=== PATIENT | female | born 2000 | race Caucasian/White ===

== ENCOUNTER 2019-05-09 10:49 | Inpatient (IN) ==
[~2019-05-09 10:49] MED LIST: Famotidine 20 MG/2 ML VIAL IVP PRN; Methylergonovine 0.2 MG/ML AMPUL IM ONE; Metoclopramide 10 MG/2 ML VIAL IVP PRN; Naloxone 0.4 MG/ML INJ IVP PRN; miSOPROStol 100 MCG TABLET PO ONE
[2019-05-09 10:52] LABS: Amphetamine Screen,Urine Negative ng/mL (Cutoff=1000); Barbiturate Screen,Urine Negative ng/mL (Cutoff=200); Benzodiazepines Screen,Urine Negative ng/mL (Cutoff=200); Cannabinoid Screen,Urine Negative ng/mL (Cutoff = 50); Cocaine Screen,Urine Negative ng/mL (Cutoff= 300); Opiate Screen,Urine Negative ng/mL (Cutoff=300); Phencyclidine Screen,Urine Negative ng/mL (Cutoff=25)
[2019-05-09] MEDS ORDERED: Ondansetron 4 MG/2 ML VIAL IVP PRN (10:54)
--- NOTE | 2019-05-09 11:02 | OB/GYN History & Physical ---
Date of Encounter: 05/09/19 Time of Encounter: 11:00 Assessment and Plan (1) 37 weeks gestation of Current visit: Yes Status: Acute 18 yo female presents at 37w1d gestation in labor. Will admit to labor and delivery and expect . History of Present Illness Chief complaint: contractions HPI: Ms. Clayton is a 18 year old female 18yo female presents at 37w1d presents with c/o contractions since 4:30 this am Denies LOF, she is having some spotting. Past Med Surg Social Fam HX - Past Medical History Source: patient, old records reviewed Medical history: no medical history Psychiatric history: no psych history - Past Surgical History Surgical History: no surgical history Additional surgical history: T and A at 16 years old - Social History Smoking Status: Never smoker Smokeless Tobacco Status: No Alcohol use: none Drug use: none - Family History Mother Name: Denies any family history Obstetrical History - Pregnancies : 2 Para: 1 (36 weeks ) Medications and Allergies Vit #108/Iron/FA [ One Tablet] 1 each PO DAILY #30 tablet 07/17/17 [Rx] Allergy/AdvReac Type Severity Reaction Status Date / Time No Known Allergies Allergy Verified 01/23/19 11:25 Exam - Constitutional Constitutional: well developed - HEENT HEENT: EOMI, PERRL - Neck Neck exam: full ROM - Lungs Respiratory exam: CTAB - Cardiovascular Cardiovascular exam: RRR - Abdomen Abdomen: Present: gravid - Extremities Extremities exam: full ROM Deep Tendon Reflex Grade: 2+ Normal - Cervix Dilation: 5 Effacement: 80 Station: -1 Results All other labs normal. - VTE Reasons for not Prescribing Prophylaxis: Treatment not Indicated - Low risk for VTE
[2019-05-09] MEDS ORDERED: *HR* Nalbuphine 10 MG/ML AMPUL IV PRN (11:05)
[2019-05-09] MEDS: Ringers Solution, Lactated 1,000 ML IVC SCH ×2 (11:10→12:01)
[2019-05-09] MEDS ORDERED: *HR* FentaNYL (PF) 100 MCG/2 ML VIAL EP ONE (11:28)
[2019-05-09] MEDS ORDERED: Bupivacaine-MPF 0.25% 10 ML VIAL EP ONE (11:28)
[2019-05-09] MEDS ORDERED: Epidural Premix (fent/bupiv) 110 ML EP SCH (11:30)
[2019-05-09] MEDS ORDERED: Epidural Premix (fent/bupiv) 110 ML EP ONE (11:33)
[2019-05-09 11:44] LABS: Basophils % 0.3 %; Eosinophils # 0.2 K/mcL (0.0-0.6); Eosinophils % 1.3 %; Hematocrit 34.2 % (35.3-44.9); Immature Granulocytes % 0.6 % (0-4); Lymphocytes # 2.6 K/mcL (0.6-4.6); Lymphocytes % 20.4 %; Mean Corpuscular HGB Conc 32.2 g/dL (31.6-35.5); Mean Corpuscular Hemoglobin 25.9 pg (28.0-33.3); Mean Corpuscular Volume 80.7 fL (83.0-100.0); Mean Platelet Volume 9.5 fL (9.4-12.4); Monocytes # 0.9 K/mcL (0.0-1.3); Monocytes % 6.9 %; Neutrophils # 8.9 K/mcL (1.6-8.9); Platelet Count 161 K/mcL (140-400); Red Blood Count 4.24 M/mcL (3.82-4.97); Red Cell Distribution Width 12.6 % (11.5-14.5); Segmented Neutrophils % 70.5 %; White Blood Count 12.6 K/mcL (4.3-11.1)
--- NOTE | 2019-05-09 12:12 | Anesthesia Evaluation PreOp ---
Date of Encounter: 05/09/19 Time of Encounter: 11:39 - Past History Planned Operation: DEMETRIO Cardiac History: Denies any Significant Hx Pulmonary History: Asthma (well-controlled) [employer]ANDWICH WRAPPER History: Denies Any Significant HX Other Medical History: Denies Any Significant HX Anesthesia History: No Prior Anesthetic Complications (no issues w/ NA; denies personal and family h/o GA complications), Past Anesthesia (DEMETRIO x 1; T&A) : Yes Alcohol Use: none Drug use: none Medications and Allergies Vit #108/Iron/FA [ One Tablet] 1 each PO DAILY #30 tablet 07/17/17 [Rx] Allergy/AdvReac Type Severity Reaction Status Date / Time No Known Allergies Allergy Verified 01/23/19 11:25 - Meds/Allergy Pre-op Review Medications Reviewed: Yes Allergies Reviewed: Yes Beta Blockers on Current Med List: No Anesthesia Results - Labs 05/09/19 11:00 Anesthesia Exam O2 Sat Height 1.57 m Weight 66.5 kg NPO (# of Hours): >8hrs Pain Scale: 10 Pain Scale Used: Numeric (1 - 10) - HEENT Pupil (Motor): Pupils equal Mallampati: II Teeth: Normal Oral Opening: Greater than 3 - SANDWICH WRAPPER LOC: Oriented [employer]AND[employer]ICH WRAPPER Motor: Normal RUE, Normal LUE, Normal RLE, Normal LLE, Normal Face [employer]AND[employer]ICH WRAPPER Sensory: Normal: RUE, LUE, RLE, LLE, Face - Cardiac Rhythm: Regular Murmur: None - Pulmonary Breath Sounds: bilateral Clear Respiratory Effort: Symmetrical Anesthesia Assess/Plan ASA Score: 2 Level of consciousness: Cooperative, Oriented, Restless Anesthetic Plan: Epidural Autologous Blood: No Monitoring Plan: Standard Monitors Recovery Plan: Other
--- NOTE | 2019-05-09 12:15 | Anesthesia Procedures ---
Date of Encounter: 05/09/19 Time of Encounter: 11:54 Procedures: Anesthesia - Epidural/Spinal Patient ID/Chart reviewed: Yes Patient examined: Yes OB Eval: Gestational age: 37 weeks 1 day OB Eval: : 2 OB Eval: Hx Para: 1 OB Eval: Dilated at (cm): 7 OB Eval: Contractions: Non-stressed pattern Consent Obtained: Yes Supplemental Oxygen: None/Room Air Site Prep: Aseptic Technique, Sterile prep and drape, Povidone-Iodine 1% Patient position: upright Local Anesthetic: Lidocaine 1% Amount of Local Anesthetic used: 3 Touhy Needle Gauge: 18 Touhy Needle Depth (cm): 4 Catheter Depth at Skin (cm): 9 Test Dose (1.5% Lido + Epi): Volume given (mls): 5 Test Dose Result: Negative Loading Dose: 0.25% Marcaine (mls): 5 Loading Dose: Fentanyl (mcg): 100 Loading Dose Administered: Thru Catheter Infusion Med: 0.125% Bupivacaine w/ 2 mcg/ml Fentanyl Infusion Rate (mls/hr): [address]: Tegaderm, Tape Interspace Used: L4-L5 Loss of Resistance (BEBO): Yes Blood: No CSF: No Paresthesia: No Procedure: successful on 1st attempt; patient tolerated procedure well; VSS Vitals + FHT's: see Katelyn ROCA's electronic records for VS entry
[2019-05-09] MEDS ORDERED: Oxytocin 20 units/ LR 1000 mL 20 UNIT/1,000 ML BAG IVC ONE ×3 (12:40→16:18)
--- NOTE | 2019-05-09 14:27 | OB/GYN Procedure Note ---
Delivery - Delivery Date: 05/09/19 Provider: Virgilio Holliday Intrapartum events: none Delivery induction: none - (s) A Delivery Date: 05/09/19 Delivery Time: 13:30 Presentation: vertex Position: NADIR Gender: Female Viability: Viable Weight Gram: 2.5 kg at 1 minute: 8 at 5 mins: 9 Shoulder Dystocia: not encountered Specimens collected: cord blood Placenta: spontaneous Cord: 3 umbilical vessels - Repair Episiotomy: none Laceration Description: None - Complications Delivery complications: none - Disposition Mom disposition: stable in LDR disposition: stable in LDR - Comments Comments: Pt is s/p without complications. Delivery was from NADIR presentation. we had sponaneous delivery of normal placenta. There were no lacerations and no complications. Mother and infant recovered in LDR. EBLL 100 cc
[2019-05-09] MEDS ORDERED: Rho Immune Globulin 1,500 UNIT SYRINGE IM PRN (16:18)
[2019-05-09] MEDS ORDERED: Acetaminophen 325 MG TABLET PO PRN (16:18)
[2019-05-09] MEDS ORDERED: Oxytocin 20 units/ LR 1000 mL 20 UNIT/1,000 ML BAG IVC SCH (16:18)
[2019-05-09] MEDS ORDERED: Measles/Mumps/Rubella Vacc 0.5 ML VIAL SQ PRN (16:18)
[2019-05-09] MEDS: Ibuprofen 600 MG TABLET PO PRN (21:39)
[2019-05-10] MEDS: Ibuprofen 600 MG TABLET PO PRN (06:34)
[2019-05-10 07:35] VITALS: BP 102/65
[2019-05-10 07:57] LABS: Basophils % 0.2 %; Eosinophils # 0.1 K/mcL (0.0-0.6); Eosinophils % 1.1 %; Hematocrit 30.6 % (35.3-44.9); Hemoglobin 9.9 g/dL (11.5-15.4); Immature Granulocytes % 0.7 % (0-4); Lymphocytes # 2.4 K/mcL (0.6-4.6); Lymphocytes % 19.6 %; Mean Corpuscular HGB Conc 32.4 g/dL (31.6-35.5); Mean Corpuscular Hemoglobin 26.7 pg (28.0-33.3); Mean Corpuscular Volume 82.5 fL (83.0-100.0); Mean Platelet Volume 9.8 fL (9.4-12.4); Monocytes # 1.2 K/mcL (0.0-1.3); Monocytes % 9.8 %; Neutrophils # 8.4 K/mcL (1.6-8.9); Platelet Count 139 K/mcL (140-400); Red Blood Count 3.71 M/mcL (3.82-4.97); Red Cell Distribution Width 12.5 % (11.5-14.5); Segmented Neutrophils % 68.6 %; White Blood Count 12.2 K/mcL (4.3-11.1)
--- NOTE | 2019-05-10 08:24 | Discharge Summary ---
Date of Encounter: 05/10/19 Time of Encounter: 08:21 - Discharge Diagnosis (1) Vaginal delivery Priority: Primary Status: Acute Comments: Stable, meeting all PP milestones, pain well managed, bleeding minimal, , desires discharge (2) Acute blood loss anemia Priority: Primary Status: Acute Comments: will discharge home on iron - Discharge Medications Prescriptions: New Ferrous Sulfate 325 mg PO DAILY #30 tablet Acetaminophen [Tylenol] 650 mg PO Q6HR PRN tablet PRN Reason: Mild Pain Ibuprofen [Motrin] 600 mg PO Q6HR PRN #60 tablet PRN Reason: Cramping Docusate [Colace] 100 mg PO BID #30 capsule Continued Vit #108/Iron/FA [ One Tablet] 1 each PO DAILY #30 tablet Home Medications: Vit #108/Iron/FA [ One Tablet] 1 each PO DAILY #30 tablet 07/17/17 [Rx] Acetaminophen [Tylenol] 650 mg PO Q6HR PRN tablet 05/10/19 [Rx] Docusate [Colace] 100 mg PO BID #30 capsule 05/10/19 [Rx] Ferrous Sulfate 325 mg PO DAILY #30 tablet 05/10/19 [Rx] Ibuprofen [Motrin] 600 mg PO Q6HR PRN #60 tablet 05/10/19 [Rx] Allergies/Adverse Reactions: Allergy/AdvReac Type Severity Reaction Status Date / Time No Known Allergies Allergy Verified 01/23/19 11:25 Data Procedures and tests throughout hospitalization: Laboratory Tests 05/09/19 05/09/19 05/09/19 10:17 10:33 11:00 WBC 12.6 H RBC 4.24 Hgb 11.0 L Hct 34.2 L MCV 80.7 L MCH 25.9 L MCHC 32.2 RDW 12.6 Plt Count 161 MPV 9.5 Immature Gran % 0.6 Seg Neutrophils % 70.5 Lymphocytes % 20.4 Monocytes % 6.9 Eosinophils % 1.3 Basophils % 0.3 Neutrophils # 8.9 Lymphocytes # 2.6 Monocytes # 0.9 Eosinophils # 0.2 Basophils # 0.0 POC Glucose 88 Urine Opiates Screen Negative Ur Buprenorphine Scrn Negative Ur Barbiturates Screen Negative Ur Phencyclidine Scrn Negative Ur Amphetamines Screen Negative U Benzodiazepines Scrn Negative Urine Cocaine Screen Negative U Marijuana (THC) Screen Negative Ur Drug Screen Interp See Below Baby's Blood Type Mother's Blood Type Rhogam Indicated 05/09/19 05/10/19 14:15 07:45 WBC 12.2 H RBC 3.71 L Hgb 9.9 L Hct 30.6 L MCV 82.5 L MCH 26.7 L MCHC 32.4 RDW 12.5 Plt Count 139 L MPV 9.8 Immature Gran % 0.7 Seg Neutrophils % 68.6 Lymphocytes % 19.6 Monocytes % 9.8 Eosinophils % 1.1 Basophils % 0.2 Neutrophils # 8.4 Lymphocytes # 2.4 Monocytes # 1.2 Eosinophils # 0.1 Basophils # 0.0 POC Glucose Urine Opiates Screen Ur Buprenorphine Scrn Ur Barbiturates Screen Ur Phencyclidine Scrn Ur Amphetamines Screen U Benzodiazepines Scrn Urine Cocaine Screen U Marijuana (THC) Screen Ur Drug Screen Interp Baby's Blood Type B RH NEGATIVE Mother's Blood Type AB RH NEGATIVE Rhogam Indicated NO Labs on day of discharge: Labs from last 24 hours 05/10/19 05/09/19 05/09/19 07:45 14:15 11:00 WBC 12.2 H 12.6 H RBC 3.71 L 4.24 Hgb 9.9 L 11.0 L Hct 30.6 L 34.2 L MCV 82.5 L 80.7 L MCH 26.7 L 25.9 L MCHC 32.4 32.2 RDW 12.5 12.6 Plt Count 139 L 161 MPV 9.8 9.5 Immature Gran % 0.7 0.6 Seg Neutrophils % 68.6 70.5 Lymphocytes % 19.6 20.4 Monocytes % 9.8 6.9 Eosinophils % 1.1 1.3 Basophils % 0.2 0.3 Neutrophils # 8.4 8.9 Lymphocytes # 2.4 2.6 Monocytes # 1.2 0.9 Eosinophils # 0.1 0.2 Basophils # 0.0 0.0 POC Glucose Urine Opiates Screen Ur Buprenorphine Scrn Ur Barbiturates Screen Ur Phencyclidine Scrn Ur Amphetamines Screen U Benzodiazepines Scrn Urine Cocaine Screen U Marijuana (THC) Screen Ur Drug Screen Interp Baby's Blood Type B RH NEGATIVE Mother's Blood Type AB RH NEGATIVE Rhogam Indicated NO 05/09/19 05/09/19 10:33 10:17 WBC RBC Hgb Hct MCV MCH MCHC RDW Plt Count MPV Immature Gran % Seg Neutrophils % Lymphocytes % Monocytes % Eosinophils % Basophils % Neutrophils # Lymphocytes # Monocytes # Eosinophils # Basophils # POC Glucose 88 Urine Opiates Screen Negative Ur Buprenorphine Scrn Negative Ur Barbiturates Screen Negative Ur Phencyclidine Scrn Negative Ur Amphetamines Screen Negative U Benzodiazepines Scrn Negative Urine Cocaine Screen Negative U Marijuana (THC) Screen Negative Ur Drug Screen Interp See Below Baby's Blood Type Mother's Blood Type Rhogam Indicated Date of admission: 05/09/19 10:49 Consults: 05/09/19 16:18 Consult to Social Work Assistant [CONS] Routine Comment: Vaginal delivery, consult needed Consult to Dry Cleaner [CONS] Routine Reason for SW Consult: teen Discharging clinician: Zohra Mosqueda Anticipated date of discharge: 05/10/19 - Patient Status Disposition: Home, Self-Care Condition: Good Functional capacity at discharge: independent ambulation Overall status at discharge: patient is back to baseline - Discharge Instructions - Diet and Activity Activity: resume usual activities as tolerated Diet: regular diet Hospital Course Reason for admission: IUP at term Delivery: Episiotomy: none Other procedures: none complications: none Discharge diagnosis: IUP at term delivered [place] baby: female Hospital course: Delivery - Delivery Date: 05/09/19 Provider: Virgilio Holliday Intrapartum events: none Delivery induction: none - Infant (s) A Infant Delivery Date: 05/09/19 Delivery Time: 13:30 Presentation: vertex Position: NADIR Gender: Female Viability: Viable Weight Gram: 2.5 kg at 1 minute: 8 at 5 mins: 9 Shoulder Dystocia: not encountered Specimens collected: cord blood Placenta: spontaneous Cord: 3 umbilical vessels - Repair Episiotomy: none Laceration Description: None - Complications Delivery complications: none - Disposition Mom disposition: stable in PP and appropriate for discharge Time Attestation: Total time spent providing and/or coordinating discharge services: Time Spent: Less than 30 minutes Exam - Constitutional Vitals: Temp Pulse Resp BP Pulse Ox 98.6 F 90 14 102/65 97 05/10/19 07:34 05/10/19 07:34 05/10/19 07:34 05/10/19 07:34 05/10/19 07:34 General appearance IM: A&O X 3 - Respiratory Respiratory exam: Present: CTAB - Cardiovascular Cardiovascular exam IM: Present: RRR - GI/Abdominal GI/Abdominal exam IM: soft - Uterine Tone: Firm Uterus Position: At Umbilicus, 1 Finger Below Umbilicus - Extremities Exam Extremities exam IM: Present: normal capillary refill, normal inspection - Neurological Exam Neurological exam: normal gait, oriented X3 - Psychiatric Additional comments: reports good mood
[2019-05-10] MEDS ORDERED: Prenatal Vit/FA 1 EACH TABLET PO SCH (09:00)
== END 2019-05-10 14:00 | disposition home or self-care (01) | DRG 560 ==
LOC: 1NENULAB → 1NENUOBS 16:26
PROVIDERS: ADMIT Advanced Practice Midwife; ATTEND Advanced Practice Midwife

== ENCOUNTER 2021-01-08 16:16 | Observation (INO) ==
[2021-01-08] MEDS ORDERED: Famotidine 20 MG/2 ML VIAL IVP ONE (16:48)
[2021-01-08] MEDS ORDERED: Ondansetron 4 MG/2 ML VIAL IVP ONE (16:48)
[2021-01-08] MEDS ORDERED: 0.9 % Sodium Chloride 1,000 ML IVC ONE ×3 (16:48→21:00)
[2021-01-08 17:01] LABS: Basophils % 0.3 %; Eosinophils % 0.2 %; Hematocrit 43.5 % (35.3-44.9); Hemoglobin 14.2 g/dL (11.5-15.4); Immature Granulocytes % 0.3 % (0-4); Lymphocytes # 0.4 K/mcL (0.6-4.6); Lymphocytes % 3.2 %; Mean Corpuscular HGB Conc 32.6 g/dL (31.6-35.5); Mean Corpuscular Hemoglobin 28.3 pg (28.0-33.3); Mean Corpuscular Volume 86.7 fL (83.0-100.0); Mean Platelet Volume 10.3 fL (9.4-12.4); Monocytes # 0.6 K/mcL (0.0-1.3); Monocytes % 5.3 %; Neutrophils # 10.1 K/mcL (1.6-8.9); Platelet Count 174 K/mcL (140-400); Red Blood Count 5.02 M/mcL (3.82-4.97); Red Cell Distribution Width 12.3 % (11.5-14.5); Segmented Neutrophils % 90.7 %; White Blood Count 11.1 K/mcL (4.3-11.1)
[2021-01-08 17:02] LABS: Bilirubin,Urine Negative (Negative); Blood,Urine Small (Negative); Clarity,Urine Clear (Clear); Color,Urine Yellow (Yellow); Glucose,Urine (UA) Normal (Normal); Ketones,Urine 40 mg/dL (Negative); Leukocyte Esterase,Urine Negative (Negative); Mucus,Urine Few per lpf (None-Few); Nitrite,Urine Negative (Negative); PH,Urine 5.5 pH Units (5.0-8.0); Protein,Urine Trace mg/dL (Neg-Trace); Specific Gravity,Urine 1.028 (1.010-1.025); Squamous Epithelial Cell,Urine Moderate per hpf (None-Few); Urobilinogen,Urine Normal (Normal); WBC,Urine 0-3 per hpf (0-3)
[2021-01-08] MEDS ORDERED: Ketorolac 30 MG/ML VIAL IVP ONE (17:05)
[2021-01-08 17:30] LABS: BUN/Creatinine Ratio 18 (6-26); Blood Urea Nitrogen 14 mg/dL (6-20); Calcium 9.1 mg/dL (8.6-10.3); Carbon Dioxide 22 mEq/L (23-29); Chloride 106 mEq/L (98-107); Glucose 118 mg/dL (70-105); Osmolality,Calculated 290 (280-300); Potassium 3.9 mEq/L (3.5-5.1); Sodium 139 mEq/L (136-145); eGFR For African Americans > 60 (> 60); eGFR For Non-African Americans > 60 (> 60)
[2021-01-08 17:49] LABS: Lipase 31 Units/L (11-82); Troponin I < 0.03 ng/mL (< 0.04)
[2021-01-08] MEDS ORDERED: Isovue-370 500 ML BOTTLE IVP ONE (21:00)
[2021-01-08 21:11] LABS: Thyroid Stimulating Hormone 0.566 mcIU/mL (0.340-5.600); Triiodothyronine (T3) Free 3.16 pg/mL (2.50-3.90)
[2021-01-08 21:54] LABS: Albumin 3.7 g/dL (3.5-5.7); Albumin/Globulin Ratio 1.7 (1.1-2.2); Bilirubin,Direct 0.2 mg/dL (0.0-0.2); Bilirubin,Indirect 0.5 mg/dL (0.0-1.0); Bilirubin,Total 0.7 mg/dL (0.3-1.0); Globulin 2.2 g/dL (2.4-3.5); Total Protein 5.9 g/dL (6.4-8.9)
[2021-01-09] MEDS ORDERED: Melatonin 3 MG TABLET PO PRN (00:56)
[2021-01-09] MEDS ORDERED: Ondansetron 4 MG/2 ML VIAL IVP PRN (00:56)
[2021-01-09] MEDS ORDERED: Acetaminophen 325 MG TABLET PO PRN ×2 (00:56→09:31)
[2021-01-09] MEDS ORDERED: Naloxone 0.4 MG/ML INJ IVP PRN (00:56)
[2021-01-09] MEDS ORDERED: Acetaminophen IV 1,000 MG/100 ML BAG IVPB ONE (01:31)
[2021-01-09] MEDS ORDERED: 0.9 % Sodium Chloride 1,000 ML IVC ONE (01:35)
[2021-01-09 03:09] LABS: BUN/Creatinine Ratio 16 (6-26); Blood Urea Nitrogen 11 mg/dL (6-20); Calcium 7.7 mg/dL (8.6-10.3); Carbon Dioxide 19 mEq/L (23-29); Chloride 109 mEq/L (98-107); Glucose 123 mg/dL (70-105); Magnesium 1.8 mg/dL (1.6-2.6); Osmolality,Calculated 281 (280-300); Phosphorous 2.1 mg/dL (2.7-4.5); Potassium 3.2 mEq/L (3.5-5.1); Sodium 135 mEq/L (136-145); eGFR For African Americans > 60 (> 60); eGFR For Non-African Americans > 60 (> 60)
[2021-01-09] MEDS: Ringers Solution, Lactated 1,000 ML IVC SCH ×2 (04:18→12:05)
[2021-01-09 04:22] LABS: Amphetamine Screen,Urine Negative ng/mL (Cutoff=1000); Barbiturate Screen,Urine Negative ng/mL (Cutoff=200); Benzodiazepines Screen,Urine Negative ng/mL (Cutoff=200); Cannabinoid Screen,Urine Negative ng/mL (Cutoff = 50); Cocaine Screen,Urine Negative ng/mL (Cutoff= 300); Opiate Screen,Urine Negative ng/mL (Cutoff=300); Phencyclidine Screen,Urine Negative ng/mL (Cutoff=25)
[2021-01-09 06:56] VITALS: BP 99/63
[2021-01-09] MEDS ORDERED: Piperacillin/Tazobactam 3.375 GM in 0.9 % Sodium Chloride Mini Bag 100 ML IVPB SCH (08:00)
[2021-01-09] MEDS ORDERED: Ibuprofen 400 MG TABLET PO PRN (09:31)
[2021-01-09] MEDS ORDERED: Calcium Gluconate 1gm/50mL 1 GM/50 ML BAG IVPB ONE (11:11)
[2021-01-09 20:03] LABS: Hepatitis B Surface Antigen Nonreactive (Nonreactive)
[2021-01-09 20:31] LABS: Hepatitis C Virus Antibody Nonreactive (Nonreactive)
[2021-01-09 20:39] LABS: Hepatitis B Core IgM Nonreactive (Nonreactive)
[2021-01-09 20:43] LABS: Hepatitis A Antibody IgM Nonreactive (Nonreactive)
== END 2021-01-09 15:46 | disposition home or self-care (01) ==
LOC: EMEROOARM 16:16 → 2ANU 16:16 → SUATTDRO 01-09 00:16 → 2ANU 01-09 01:10
PROVIDERS: ADMIT Family Medicine; ATTEND Internal Medicine

== ENCOUNTER → 2022-06-08 08:41 | Observation (INO) ==
[2022-06-07 22:49] LABS: Basophils % 0.2 %; Eosinophils # 0.2 K/mcL (0.0-0.6); Hematocrit 33.2 % (35.3-44.9); Hemoglobin 11.3 g/dL (11.5-15.4); Immature Granulocytes % 0.8 % (0-4); Lymphocytes % 19.9 %; Mean Corpuscular Hemoglobin 30.5 pg (28.0-33.3); Mean Corpuscular Volume 89.5 fL (83.0-100.0); Mean Platelet Volume 9.7 fL (9.4-12.4); Monocytes # 0.8 K/mcL (0.0-1.3); Monocytes % 7.6 %; Neutrophils # 7.1 K/mcL (1.6-8.9); Platelet Count 164 K/mcL (140-400); Red Blood Count 3.71 M/mcL (3.82-4.97); Red Cell Distribution Width 12.4 % (11.5-14.5); Segmented Neutrophils % 69.5 %; White Blood Count 10.2 K/mcL (4.3-11.1)
[~2022-06-08 08:41] MED LIST changes: -Famotidine 20 MG/2 ML VIAL IVP PRN; -Methylergonovine 0.2 MG/ML AMPUL IM ONE; -Metoclopramide 10 MG/2 ML VIAL IVP PRN; -Naloxone 0.4 MG/ML INJ IVP PRN; +Rho Immune Globulin 1,500 UNIT SYRINGE IM ONE; -miSOPROStol 100 MCG TABLET PO ONE
== END | disposition home or self-care (01) ==
LOC: 1NENULAB
PROVIDERS: ADMIT Registered Nurse; ATTEND Registered Nurse